=== PATIENT | female | born 1980 | race Caucasian/White ===

== ENCOUNTER 2018-08-11 11:32 | Emergency (ER) | payer SELFPAY ==
[2018-08-11] MEDS ORDERED: HYDROCHLOROTHIAZIDE 25 MG TABLET PO ONE (12:43)
[2018-08-11] MEDS ORDERED: AMLODIPINE BESYLATE 5 MG TABLET PO ONE (12:43)
[2018-08-11] MEDS ORDERED: ASPIRIN 81 MG TABLET, CHEWABLE PO ONE (12:43)
--- NOTE | 2018-08-11 12:44 | ER Document Report ---
ED Medical Screen (RME) - General Chief Complaint: Chest Pain Stated Complaint: CHEST PAIN Time Seen by Provider: 08/11/18 12:29 TRAVEL OUTSIDE OF THE [place] IN LAST 30 DAYS: No - Related Data Allergies/Adverse Reactions: cyclobenzaprine [From Flexeril] Allergy (Verified 08/11/18 11:47) Physical Exam - Vital signs Vitals: Temp Pulse Resp BP Pulse Ox 98.7 F 62 16 169/90 H 97 08/11/18 11:40 08/11/18 11:40 08/11/18 11:40 08/11/18 11:40 08/11/18 11:40 Course - Vital Signs Vital signs: Temp Pulse Resp BP Pulse Ox 98.7 F 62 16 169/90 H 97 08/11/18 11:40 08/11/18 11:40 08/11/18 11:40 08/11/18 11:40 08/11/18 11:40
[2018-08-11 13:03] LABS: ABSOLUTE BASOPHILS # (AUTO) 0.1 10^3/uL (0.0-0.2); ABSOLUTE EOSINOPHILS # (AUTO) 0.1 10^3/uL (0.0-0.6); ABSOLUTE LYMPHOCYTES (AUTO) 1.6 10^3/uL (0.5-4.7); ABSOLUTE MONOCYTES (AUTO) 0.3 10^3/uL (0.1-1.4); ABSOLUTE NEUT (AUTO) 5.9 10^3/uL (1.7-8.2); BASOPHILS % (AUTO) 1.2 % (0-2); EOSINOPHILS % (AUTO) 1.4 % (0-6); HEMATOCRIT 43.3 % (36.0-47.0); HEMOGLOBIN 15.2 g/dL (12.0-15.5); LYMPHOCYTES % (AUTO) 19.6 % (13-45); MEAN CORPUSCULAR HEMOGLOBIN 34.8 pg (27.0-33.4); MEAN CORPUSCULAR HGB CONC 35.1 g/dL (32.0-36.0); MEAN CORPUSCULAR VOLUME 99 fl (80-97); MONOCYTES % (AUTO) 4.2 % (3-13); PLATELET COUNT 224 10^3/uL (150-450); RED BLOOD COUNT 4.36 10^6/uL (3.72-5.28); RED CELL DISTRIBUTION WIDTH 12.7 % (11.5-14.0); SEGMENTED NEUTROPHILS % (AUTO) 73.6 % (42-78); TOTAL CELLS COUNTED % (AUTO) 100 %; WHITE BLOOD COUNT 8.1 10^3/uL (4.0-10.5)
[2018-08-11 13:16] LABS: ALANINE AMINOTRANSFERASE 34 U/L (9-52); ALBUMIN 4.5 g/dL (3.5-5.0); ALKALINE PHOSPHATASE 50 U/L (38-126); ANION GAP 7 (5-19); ASPARTATE AMINO TRANSFERASE 22 U/L (14-36); BILIRUBIN,DIRECT 0.1 mg/dL (0.0-0.4); BILIRUBIN,TOTAL 1.1 mg/dL (0.2-1.3); BLOOD UREA NITROGEN 11 mg/dL (7-20); CALCIUM 9.5 mg/dL (8.4-10.2); CARBON DIOXIDE 26 mmol/L (22-30); CHLORIDE 107 mmol/L (98-107); GLUCOSE 116 mg/dL (75-110); POTASSIUM 4.5 mmol/L (3.6-5.0); TOTAL PROTEIN 6.8 g/dL (6.3-8.2)
[2018-08-11 13:33] VITALS: BP 149/86
--- NOTE | 2018-08-11 13:35 | ER Document Report ---
ED General - General Chief Complaint: Chest Pain Stated Complaint: CHEST PAIN Time Seen by Provider: 08/11/18 12:29 Primary Care Provider: NOEMI BERUMEN MD [COMMUNITY BASED STAFF] - Follow up in 3-5 days Notes: 38-year-old female patient emergency department chief complaint of hypertension. Patient states that she has been having some dizziness and occasionally feels a little tightness in her chest. Knows that it is from her blood pressure. States that she used to be on amlodipine and HCTZ but has not taken it in a while. Denies any fever, chills, sweats. No shortness of breath. No other major problems at this time. Patient does smoke. TRAVEL OUTSIDE OF THE [place] IN LAST 30 DAYS: No - HPI Onset: Last week Onset/Duration: Gradual, Waxing and waning Quality of pain: Achy Severity: Mild Pain Level: 0 Associated symptoms: Other - Dizziness - Related Data Allergies/Adverse Reactions: cyclobenzaprine [From Flexeril] Allergy (Verified 08/11/18 11:47) Past Medical History - General Information source: Patient - Social History Smoking Status: Current Every Day Smoker Frequency of alcohol use: Occasional Drug Abuse: None Lives with: Family Family History: Reviewed & Not Pertinent Patient has suicidal ideation: No Patient has homicidal ideation: No - Past Medical History Cardiac Medical History: Reports: Hx Hypertension Renal/ Medical History: Denies: Hx Peritoneal Dialysis Review of Systems - Review of Systems Notes: Constitutional: denies: Chills, Diaphoresis, Fever, Malaise, Weakness EENT: denies: Eye discharge, Blurred vision, Tearing, Double vision, Nose congestion, Nose discharge, Throat swelling, Mouth pain Cardiovascular: denies: Palpitations, Heart racing, Orthopnea, Dyspnea, +Chest pain Respiratory: denies: Cough, Hurts to breathe, Wheezing, Shortness of breath Gastrointestinal: denies: Abdominal pain, Diarrhea, Nausea, Vomiting, Black stools, bright red blood in stool Genitourinary: denies: Burning, Dysuria, Discharge, Frequency, Flank pain, Hematuria Musculoskeletal: denies: Joint pain, Joint swelling, Muscle pain, Muscle stiffness, back pain Hematologic/Lymphatic: denies: Anemia, Easy bleeding, Easy bruising, Blood clots Neurological/Psychological: denies: Confusion, Dementia, Depression, Loss of consciousness. Positive for dizziness Skin: No lesions, no masses, no skin breakdown, no abscesses Physical Exam - Vital signs Vitals: Temp Pulse Resp BP Pulse Ox 98.7 F 62 16 169/90 H 97 08/11/18 11:40 08/11/18 11:40 08/11/18 11:40 08/11/18 11:40 08/11/18 11:40 Interpretation: Normal - General General appearance: Appears well, Alert - HEENT Head: Normocephalic, Atraumatic Eyes: Normal Pupils: PERRL - Respiratory Respiratory status: No respiratory distress Chest status: Nontender Breath sounds: Normal Chest palpation: Normal - Cardiovascular Rhythm: Regular Heart sounds: Normal auscultation Murmur: No - Abdominal Inspection: Normal Distension: No distension Bowel sounds: Normal Tenderness: Nontender Organomegaly: No organomegaly - Back Back: Normal, Nontender - Extremities General upper extremity: Normal inspection, Nontender, Normal color, Normal ROM, Normal temperature General lower extremity: Normal inspection, Nontender, Normal color, Normal ROM, Normal temperature, Normal weight bearing. No: She's sign - Neurological Neuro grossly intact: Yes Cognition: Normal Orientation: AAOx4 Pevely Coma Scale Eye Opening: Spontaneous Adarsh Coma Scale Verbal: Oriented Adarsh Coma Scale Motor: Obeys Commands Pevely Coma Scale Total: 15 Speech: Normal Motor strength normal: LUE, RUE, LLE, RLE Sensory: Normal - Psychological Associated symptoms: Normal affect, Normal mood - Skin Skin Temperature: Warm Skin Moisture: Dry Skin Color: Normal Course - Re-evaluation Re-evalutation: 08/11/18 13:34 Laboratory 08/11/18 08/11/18 08/11/18 12:50 12:50 12:50 WBC 8.1 RBC 4.36 Hgb 15.2 Hct 43.3 MCV 99 H MCH 34.8 H MCHC 35.1 RDW 12.7 Plt Count 224 Seg Neutrophils % 73.6 Lymphocytes % 19.6 Monocytes % 4.2 Eosinophils % 1.4 Basophils % 1.2 Absolute Neutrophils 5.9 Absolute Lymphocytes 1.6 Absolute Monocytes 0.3 Absolute Eosinophils 0.1 Absolute Basophils 0.1 Sodium 140.0 Potassium 4.5 Chloride 107 Carbon Dioxide 26 Anion Gap 7 BUN 11 Creatinine 0.70 Est GFR ( Amer) > 60 Est GFR (Non-Af Amer) > 60 Glucose 116 H Calcium 9.5 Total Bilirubin 1.1 Direct Bilirubin 0.1 Neonat Total Bilirubin Not Reportable Neonat Direct Bilirubin Not Reportable Neonat Indirect Bili Not Reportable AST 22 ALT 34 Alkaline Phosphatase 50 Troponin I < 0.012 Total Protein 6.8 Albumin 4.5 She is labs are unremarkable. EKG shows a sinus arrhythmia with a rate of 65. Does not appear grossly abnormal. Vital signs show that her heart rate does not occasionally go down into the 40s. She is asymptomatic. Symptoms have been present for several days and her labs are negative. Unlikely this represents a myocardial infarction. At this time I am going to tell her to hold off on the amlodipine and to continue with HCTZ alone and reevaluate by primary care doctor. We will give her information for primary care doctor. - Vital Signs Vital signs: Temp Pulse Resp BP Pulse Ox 98.4 F 48 L 14 149/86 H 98 08/11/18 13:27 08/11/18 13:27 08/11/18 13:27 08/11/18 13:27 08/11/18 13:27 - Laboratory Result Diagrams: 08/11/18 12:50 08/11/18 12:50 Laboratory results interpreted by me: 08/11/18 08/11/18 12:50 12:50 MCV 99 H MCH 34.8 H Glucose 116 H - EKG Interpretation by Vt EKG shows normal: Sinus rhythm, [place], Intervals, QRS Complexes, ST-T Waves Discharge - Discharge Clinical Impression: Sinus bradycardia Hypertension Qualifiers: Hypertension type: unspecified Qualified Code(s): I10 - Essential (primary) hy pertension Condition: Good Disposition: HOME, SELF-CARE Instructions: Chest Pain of Unclear Cause ([facility]), High Blood Pressure, Requiring Treatment ([facility]), Hydrochlorothiazide ([facility]), Stop Smoking ([facility]) Additional Instructions: Currently your heart rate was in the upper 40s to low 50s. The medicine amlodipine can sometimes lower the heart rate a little bit. I am recommending that you only do that hydrochlorothiazide and then to check your blood pressure at home. If your blood pressure continues to be elevated please see a regular doctor and talk about other options. We did not find anything wrong with your heart today other than the slow heart rate. If you begin to have any worsening symptoms please return for repeat evaluation. Please stop smoking. Prescriptions: Hydrochlorothiazide [Hydrodiuril 25 mg Tablet] 25 mg PO QAM 90 Days #90 tablet Referrals: NOEMI BERUMEN MD [COMMUNITY BASED STAFF] - Follow up in 3-5 days
--- NOTE | 2018-08-12 23:05 | EKG REPORT ---
SEVERITY:- OTHERWISE NORMAL ECG - SINUS ARRHYTHMIA, RATE [id number] : Confirmed by: Martinez Angelo 12-Aug-2018 23:04:12
== END 2018-08-11 13:42 | disposition home or self-care (01) ==
LOC: ER 11:32
DX: R00.1 Bradycardia, unspecified (principal); I10 Essential (primary) hypertension; R42 Dizziness and giddiness; R07.89 Other chest pain; F17.200 Nicotine dependence, unspecified, uncomplicated; Z88.8 Allergy status to other drugs, medicaments and biological substances
CPT/HCPCS: 36415; 80053; 84484; 85025; 93005; 93010; 99285